=== PATIENT | female | born 2000 | race Caucasian/White ===

== ENCOUNTER 2019-02-07 09:01 | Emergency (ER) | payer OTHER ==
[~2019-02-07] VITALS: Ht 157.5 cm; Wt 71.2 kg
--- NOTE | 2019-02-07 09:10 | NUR ---
Patient ambulated to bed 11. RN evaluating patient at bedside.
[2019-02-07 09:15] VITALS: BP 137/80
--- NOTE | 2019-02-07 09:24 | NUR ---
PT C/O LEFT ARM PAIN THAT STARTED ON TUESDAY WHILE AT WORK. STATES PAIN IS AT ELBOW FOLD AND FEELS LIKE SHE IS REALLY SORE. PAIN 8/10 THAT RADIATES TO HAND AND FINGERTIPS. PT IS UNABLE TO STRAIGHTEN OUT ARM. DENIES TRAUMA. CAP REFIL ON LEFT INDEX FINGER <3 SEC. HAND STREGTH ASYMETRICAL; WEAKNESS ON LEFT HAND.
--- NOTE | 2019-02-07 09:37 | NUR ---
Dr. Delgado evaluating patient at bedside.
[2019-02-07] MEDS ORDERED: KETOROLAC 60 MG/2 ML VIAL IM ONE (09:40)
--- NOTE | 2019-02-07 10:32 | NUR ---
Dr. Delgado re-evaluating patient at bedside.
[2019-02-07 11:01] VITALS: BP 137/80
--- NOTE | 2019-02-07 11:01 | NUR ---
Patient discharged with v/s stable. Written and verbal after care instructions given and explained. Patient alert, oriented and verbalized understanding of instructions. Ambulatory with steady gait. All questions addressed prior to discharge. ID band removed. Patient advised to follow up with PMD. Rx of NORCO AND MOTRIN given. Patient educated on indication of medication including possible reaction and side effects. Opportunity to ask questions provided and answered.
== END 2019-02-07 11:00 | disposition home or self-care (01) ==
LOC: MED 09:01
DX: M79.602 Pain in left arm (principal)
CPT/HCPCS: 81002; 81025; 96372; 99283; J1885

== ENCOUNTER 2019-11-19 17:37 | Emergency (ER) | payer SELFPAY ==
[~2019-11-19] VITALS: Ht 157.5 cm; Wt 70.8 kg
[2019-11-19 18:03] VITALS: BP 137/77
--- NOTE | 2019-11-19 18:20 | NUR ---
PT TO MARCELINO CARRANZA
--- NOTE | 2019-11-19 19:08 | NUR ---
pt ambulated to er bed 01
--- NOTE | 2019-11-19 19:25 | NUR ---
19 YO F BIB SELF FOR 5/10 EPIGASTRIC PAIN OFF AND ON WITH NAUSEA, NO VOMITING SINCE 0300 THIS MORNING AND POSSIBLE . PT STATES "I DON'T KNOW IF I'M . I TOOK 2 TESTS AT HOME AND THEY WERE POSITIVE." PT DESCRIBES EPIGASTRIC PAIN A PULLING SENSATION. LAST BM THIS AM, NORMAL. DENIES FEVER, COUGH, CONGESTION. PT IS CALM, COOPERATIVE. BEHAVIOR APPROPRIATE. SKIN PINK, WARM, DRY. BREATHING EVEN, UNLABORED. PMH-- DENIES A0
[2019-11-19 20:00] LABS: BASOPHILS % (AUTO) 0.4 % (0.0-2.0); EOSINOPHILS # (AUTO) 0.1 K/uL (0-0.4); EOSINOPHILS % (AUTO) 1.5 % (0.0-4.0); HEMATOCRIT 37.5 % (36-48); HEMOGLOBIN 12.5 g/dL (12.0-16.0); LYMPHOCYTES # (AUTO) 1.7 K/uL (2.5-16.5); LYMPHOCYTES % (AUTO) 19.6 % (20.5-51.1); MEAN CORPUSCULAR HEMOGLOBIN 29 pg (27-31); MEAN CORPUSCULAR HGB CONC 34 g/dL (33-37); MEAN CORPUSCULAR VOLUME 87.8 fL (80-94); MONOCYTES # (AUTO) 0.6 K/uL (0.8-1.0); MONOCYTES % (AUTO) 6.7 % (1.7-9.3); NEUTROPHILS # (AUTO) 6.3 K/uL (1.8-7.7); NEUTROPHILS % (AUTO) 71.8 % (42.2-75.2); PLATELET COUNT (AUTO) 332 K/uL (140-450); RED BLOOD CELL COUNT(AUTO) 4.27 MIL/uL (4.20-5.40); RED CELL DISTRIBUTION WIDTH 12.9 % (11.6-13.7); WHITE BLOOD COUNT (AUTO) 8.8 K/uL (4.5-11.0)
--- NOTE | 2019-11-19 20:15 | NUR ---
US AT BEDSIDE.
[2019-11-19 20:18] LABS: ANION GAP 14.5 (8-16); CARBON DIOXIDE 27.1 mmol/L (21-32); CREATININE 0.5 mg/dL (0.6-1.3); POTASSIUM 3.6 mmol/L (3.5-5.1)
[2019-11-19 21:05] LABS: BILIRUBIN,URINE NEGATIVE (NEGATIVE); BLOOD, URINE 2+ (NEGATIVE); COLOR,URINE YELLOW (YELLOW); LEUKOCYTE ESTERASE ,URINE 1+ (NEGATIVE); NITRITE, URINE NEGATIVE (NEGATIVE); UGLUCOSE NEGATIVE (NEGATIVE)
[2019-11-19 21:06] LABS: APPEARANCE,URINE SLIGHTLY CLOUDY (CLEAR)
[2019-11-19 21:48] VITALS: BP 122/65
--- NOTE | 2019-11-19 21:48 | NUR ---
Patient discharged with v/s stable. She no longer c/o pain. Written and verbal after care instructions given and explained. Patient alert, oriented and verbalized understanding of instructions. Ambulatory with steady gait. All questions addressed prior to discharge. ID band removed. Patient advised to follow up with PMD. Rx of Macrobid given. Patient educated on indication of medication including possible reaction and side effects. Opportunity to ask questions provided and answered.
== END 2019-11-19 21:48 | disposition home or self-care (01) ==
LOC: MED 17:37
DX: O23.41 Unspecified infection of urinary tract in pregnancy, first trimester (principal); R10.9 Unspecified abdominal pain; X50.0XXA Overexertion from strenuous movement or load, initial encounter; Y93.89 Activity, other specified; Y92.89 Other specified places as the place of occurrence of the external cause; Y99.8 Other external cause status
CPT/HCPCS: 36415; 76801; 80048; 81001; 81025; 84702; 85025; 86900; 86901; 87086; 99284; Q0092

== ENCOUNTER 2021-09-19 05:47 | Emergency (ER) | payer MEDICAID, OTHER ==
[~2021-09-19] VITALS: Ht 157.5 cm; Wt 62.2 kg
[2021-09-19 05:50] VITALS: BP 126/84
--- NOTE | 2021-09-19 06:00 | NUR ---
PT TAKEN TO BED 12.
--- NOTE | 2021-09-19 06:10 | NUR ---
21 YO F BIB SELF WITH C/C OF 9/10 RIGHT EAR PAIN XYESTERDAY MORNING S/P STATES SHE WAS CLEANING EAR WITH Q-TIP AND WENT HURT SELF.. DENIES DISCHARGE. DENIES TAKING MEDICATION FOR PAIN. DENIES HX, RX ALLER:SHRIMP
[2021-09-19] MEDS ORDERED: IBUP-2213 PO (06:13)
[2021-09-19] MEDS ORDERED: CIPR7.5S OT (06:13)
[2021-09-19 06:17] VITALS: BP 126/84
--- NOTE | 2021-09-19 06:17 | NUR ---
Patient discharged with v/s stable. Written and verbal after care instructions given and explained. Patient alert, oriented and verbalized understanding of instructions. Ambulatory with steady gait. All questions addressed prior to discharge. ID band removed. Patient advised to follow up with PMD. Rx of CIPRODEX AND IBUPROFEN given. Patient educated on indication of medication including possible reaction and side effects. Opportunity to ask questions provided and answered.
[2021-09-20] MEDS ORDERED: CIPR7.5S OT (13:19)
[2021-09-20] MEDS ORDERED: AMOX-1000 PO (13:19)
[2021-09-20] MEDS ORDERED: IBUP-2213 PO (13:19)
[2021-09-20] MEDS ORDERED: ACET-8386 PO (13:19)
== END 2021-09-19 06:17 | disposition home or self-care (01) ==
LOC: MED 05:47
DX: H60.91 Unspecified otitis externa, right ear (principal); Z79.899 Other long term (current) drug therapy
CPT/HCPCS: 99283

== ENCOUNTER 2021-09-20 12:15 | Emergency (ER) | payer OTHER ==
[~2021-09-20] VITALS: Ht 157.5 cm; Wt 62.1 kg
[~2021-09-20 12:15] MED LIST: CIPR7.5S OT; IBUP-2213 PO
[2021-09-20 12:25] VITALS: BP 155/80
--- NOTE | 2021-09-20 12:39 | NUR ---
PA FROST BEDSIDE EVALUATING PT
--- NOTE | 2021-09-20 12:44 | NUR ---
21 Y FEMALE C/O BILATERAL EAR PAIN X1 DAY. PT WAS SEEN HERE YESTERDAY FOR RIGHT EAR PAIN AND NOW THE PAIN HAS STARTED ON THE L SIDE WELL. PT RECEIVED IBUPROFEN & CIPRO EAR DROPS YESTERDAY FROM ED VISIT. UPON ASSESSMENT R EAR IS TENDER TO TOUCH AND PAIN IS RADIATING DOWN R SIDE OF JAW. PT STATED PAIN IS CURRENTLY 10/10 AND FEELS LIKE HER EAR "NEEDS TO POP." PT DENIES HIGHTOWER AT THIS TIME, BUT STATED SHE IS EXPERINCING TROUBLE HEARING. PMH: DENIES NKA
[2021-09-20] MEDS: HYDROcodone/APAP 5/325 MG 1 TAB TAB PO ONE (13:08)
[2021-09-20] MEDS ORDERED: ACET-8386 PO (13:19)
[2021-09-20] MEDS ORDERED: AMOX-1000 PO (13:19)
[2021-09-20] MEDS ORDERED: IBUP-2213 PO (13:19)
[2021-09-20] MEDS ORDERED: CIPR7.5S OT (13:19)
--- NOTE | 2021-09-20 13:46 | NUR ---
Patient discharged with v/s stable. Written and verbal after care instructions given and explained. Patient alert, oriented and verbalized understanding of instructions. Ambulatory with steady gait. All questions addressed prior to discharge. ID band removed. Patient advised to follow up with PMD. Rx of HYDROCODNE/ACETAMINOPHE, AUGMENTIN, CIPROFLAXACIN, AND IBUPROFEN given. Patient educated on indication of medication including possible reaction and side effects. Opportunity to ask questions provided and answered.
[2021-09-20 13:47] VITALS: BP 125/74
== END 2021-09-20 13:47 | disposition home or self-care (01) ==
LOC: MED 12:15
DX: H60.93 Unspecified otitis externa, bilateral (principal); Z79.2 Long term (current) use of antibiotics; Z79.1 Long term (current) use of non-steroidal anti-inflammatories (NSAID); Z79.891 Long term (current) use of opiate analgesic
CPT/HCPCS: 99283